=== PATIENT | female | born 1990 | race Caucasian/White ===

== ENCOUNTER 2024-07-28 08:24 | Outpatient (RCR) | payer BC, SELFPAY | END 2024-08-11 10:18 | disposition home or self-care (01) | LOC: HO.PT 08:24 | PROVIDERS: PCP Internal Medicine; Visit Provider Surgery | DX: M99.05 Segmental and somatic dysfunction of pelvic region (principal) | CPT/HCPCS: 97110; 97112; 97140; 97162; 97530 ==